=== PATIENT | female | born 1970 ===

== ENCOUNTER 2025-01-14 06:00 | Day surgery (SDC) | payer OTHER ==
[2025-01-12 09:56] VITALS: BP 98/64
[2025-01-12 10:02] LABS: BASO % 1.1 % (0.1-1.2); EOS # 0.24 (0.04-0.54); EOS % 3.7 % (0.7-7.0); LYMPH # 2.04 (1.18-3.74); LYMPH % 31.5 % (19.3-53.1); MEAN PLATELET VOLUME 9.90 fl (9.4-12.4); MONO # 0.71 (0.24-0.82); MONO % 11.0 % (4.7-12.5); NEUT # 3.40 (1.56-6.13); NEUT % 52.5 % (34.0-71.1); RED CELL DISTRIBUTION WIDTH 13.3 % (11.6-14.4)
[2025-01-12 10:05] LABS: URINE APPEARANCE Clear; URINE BILIRRUBIN Negative (NEGATIVE); URINE BLOOD Negative; URINE COLOR Yellow; URINE GLUCOSE Negative (NEGATIVE); URINE KETONE Negative (NEGATIVE); URINE LEUKOCYTE Negative; URINE NITRATE Negative; URINE PROTEIN Negative (NEGATIVE); URINE UROBILINOGEN 0.2 E.U./dl
[2025-01-12 10:08] LABS: URINE BACTERIA 1007.9 uL (0.0-1933); URINE EPITHELIAL CELLS 53.3 uL (0.0-38.8); URINE RBC 30.5 uL (0.0-20.8); URINE WBC 7.3 uL (0.0-23.2)
[2025-01-12 10:12] LABS: URINE CAST 0.14 uL (0.0-1.40)
[2025-01-12 10:29] LABS: INR 0.99
[2025-01-12 11:08] LABS: ALT/SGPT 19.0 U/L (12-78); AST/SGOT 15.0 U/L (15-37); BILIRUBIN TOTAL 0.51 mg/dL (0.3-1.2); BUN CREA RATIO 30.0 (7.0-25.0); CREATININE SERUM 0.6 mg/dL (0.55-1.02); GFR 103.79; GLOBULINA 3.3 G/DL (2.4-3.5); GLUCOSE FASTING 94.0 mg/dL (65-100); OSMOLALITY SERUM 285.0 MOSM/KG (275-295)
[~2025-01-14] VITALS: Ht 165.1 cm; Wt 64.0 kg
[~2025-01-14 06:00] MED LIST: TOPROL XL50 M1 PO
[2025-01-14] MEDS ORDERED: ENOXAPARIN SODIUM 40 MG/0.4 ML SYRINGE SUBCUTANEO ONE (07:29)
[2025-01-14] MEDS ORDERED: CIPROFLOXACIN IN 5 % DEXTROSE 400 MG/200 ML PIGGYBAG IV ONE (07:29)
[2025-01-14] MEDS ORDERED: BUPIVACAINE HCL/MPF 0.5% 30ML VIAL ONE (07:59)
[2025-01-14] MEDS ORDERED: LIDOCAINE HCL 1%/EPINEPHRINE 20ML VIAL IJ ONE (07:59)
[2025-01-14] MEDS ORDERED: TYLENOL325 MG PO (09:23)
[2025-01-14] MEDS ORDERED: BACTRIM DS TAB1 EACH PO (09:25)
== END 2025-01-14 11:25 | disposition home or self-care (01) ==
LOC: CIR.AMB 06:00
PROVIDERS: ATTEND Surgery
DX: D17.1 Benign lipomatous neoplasm of skin and subcutaneous tissue of trunk (principal); R22.2 Localized swelling, mass and lump, trunk; D49.2 Neoplasm of unspecified behavior of bone, soft tissue, and skin